=== PATIENT | male | born 1960 | race Caucasian/White ===

== ENCOUNTER 2023-11-09 13:12 | Emergency (ER) | payer MEDICAID, OTHER ==
--- NOTE | 2023-11-09 14:38 | ED Physician Documentation ---
PD HPI UPPER EXT INJURY - Stated complaint Stated Complaint: L FINGER LAC - Chief complaint Chief Complaint: Laceration - History obtained from History obtained from: Patient - History of Present Illness Location: Left, Finger (index) Type of injury: Laceration (table saw) Where injury occurred: Home Timing - onset: Today Timing - duration: Hours (1) Pain level max: 3 Pain level now: 3 Improved by: Rest Worsened by: Moving, Palpating Contributing factors: No: Anticoagulated - Additonal information Additional information: 63-year-old male where they left thumb laceration from a table saw today.Tetanus shot UTD. Patient is right handed. Not on anticoagulants. PD PAST MEDICAL HISTORY - Past Medical History Past Medical History: Yes Cardiovascular: Hypertension Respiratory: None Neuro: None Endocrine/Autoimmune: None GI: None : None HEENT: None Psych: None Musculoskeletal: None Derm: None - Past Surgical History Past Surgical History: Yes Ortho: Knee replacement - Allergies Allergies/Adverse Reactions: Allergies Allergy/AdvReac Type Severity Reaction Status Date / Time tramadol Allergy Rash Verified 11/09/23 13:26 - Social History Does the pt smoke?: No Smoking Status: Never smoker Does the pt drink ETOH?: No Does the pt have substance abuse?: No - Immunizations Immunizations are current?: Yes PD ED PE NORMAL - Vitals Vital signs reviewed: Yes - General General: Alert and oriented X 3, No acute distress - Extremities Extremities: Other (L thumb - superficial laceration to the pad of the thumb. partial skin avulsion. NVI. no nail, tendon or bone injury.) - Neuro Neuro: Alert and oriented X 3 Results - Vitals Vitals: Oxygen O2 Source Room air PD Medical Decision Making - ED course Complexity details: considered differential, d/w patient ED course: Patient with a partial skin avulsion from the pad of the left thumb. Dermabond was applied to the area. No active bleeding. Wound was cleansed prior to dermabond. Tetanus up to date. Nerovascularly intact. No bone injury, tendon injury, or nerve injury. Wound care instructions were given at bedside. Patient counseled regarding signs and symptoms for which I believe an urgent re- evaluation would be necessary. Patient with good understanding of and agreement to plan and is comfortable going home at this time. This document was made in part using voice recognition software. While efforts are made to proofread this document, sound alike and grammatical errors may occur. Departure - Departure Disposition: 01 Home, Self Care Clinical Impression: Finger laceration Qualifiers: Encounter type: initial encounter Finger: index finger Damage to nail status: without damage Foreign body presence: without foreign body Laterality: left Qualified Code(s): S61.211A - Laceration without foreign body of left index finger without damage to nail, initial encounter Condition: Good Instructions: ED Laceration Ext Skin Glue Follow-Up: BROOKE NEWMAN MD [Primary Care Provider] - Within 1 week Comments: Keep the wound clean. The T ring closure system and the glue will fall off on its own in a few days. Please return if you notice redness, swelling or drainage from the wound. As discussed the skin has been removed from your finger to provide a table saw, the remaining skin may readhere and heal or may fall off causing a scar. Forms: PCP List Discharge Date/Time: 11/09/23 14:52
[2023-11-09 14:56] VITALS: BP 139/93; O2SAT 99
--- NOTE | 2023-11-18 11:50 | ED Physician Documentation ---
ED Addendum - Addendum Addendum: 11/18/23 11:49 0.5cm skin avulsion size
== END 2023-11-09 14:52 | disposition home or self-care (01) ==
LOC: ED 13:12
DX: S61.211A Laceration without foreign body of left index finger without damage to nail, initial encounter (principal); W31.2XXA Contact with powered woodworking and forming machines, initial encounter; Y93.89 Activity, other specified; Y92.009 Unspecified place in unspecified non-institutional (private) residence as the place of occurrence of the external cause
CPT/HCPCS: 12001; 99283